=== PATIENT | male | born 1995 | race American Indian/Alaskan Native ===

== ENCOUNTER 2020-10-04 00:32 | Emergency (ER) | payer OTHER ==
[2020-10-04] MEDS ORDERED: ALBUTEROL 2.5 MG/3 ML NEBU IH ONE (02:13)
[2020-10-04] MEDS ORDERED: dexAMETHasone 20 MG/5 ML VIAL IM ONE (02:16)
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
[2020-10-04] MEDS: IPRATROPIUM 0.02% NEBU 2.5 ML IH ONE (02:34)
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
[2020-10-04 02:40] VITALS: BP 126/83
[2020-10-04 03:12] LABS: Basophils # (Auto) 0.1 K/mm3 (0.0-0.1); Eosinophils # (Auto) 0.1 K/mm3 (0.0-0.4); Eosinophils % (Auto) 1.7 % (0.0-4.3); Hematocrit 44.7 % (35.5-45.6); Hemoglobin 15.8 gm/dl (11.8-15.2); Lymphocytes # (Auto) 3.4 K/mm3 (1.2-5.4); Lymphocytes % (Auto) 48.5 % (13.4-35.0); Mean Corpuscular HGB Conc 35 % (32-34); Mean Corpuscular Volume 92 fl (84-94); Monocytes # (Auto) 0.5 K/mm3 (0.0-0.8); Monocytes % (Auto) 6.5 % (0.0-7.3); Platelet Count 132 K/mm3 (140-440); Red Blood Count 4.85 M/mm3 (3.65-5.03); Red Cell Distribution Width 14.7 % (13.2-15.2)
[2020-10-04 03:46] LABS: BUN/Creatinine Ratio 12; Blood Urea Nitrogen 11 mg/dL (9-20); Calcium 9.2 mg/dL (8.4-10.2); Hemolysis Index 17
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
[2020-10-04 04:24] LABS: ABG Base Excess -0.3 mmol/L (-2.0-3.0); ABG HCO3 25.1 mmol/L (20.0-26.0); ABG Methemoglobin 0.6 % (0.0-1.5); ABG Oxygen Saturation 95.2 % (95.0-99.0); ABG PCO2 43.4 mm Hg; ABG PH 7.379 pH Units (7.350-7.450); ABG PO2 70.8 mm Hg (80.0-90.0)
--- NOTE | 2020-10-07 11:45 | Electrocardiograph Report ---
[facility] Test Date: 2020-10-04 Test Time: 02:44:28 Pat Name: MAVIS LEAHY Department: Room: Gender: M Medical Laboratory Scientist: NUHA : 1995 Requested By: SHANNA TOWNSEND Order Number: [id number] Reading MD: Garry Cordoba Measurements Intervals [place] Rate: 79 P: 33 [place]: 134 QRS: 48 QRSD: 100 T: 2 QT: 348 QTc: 399 Interpretive Statements Sinus rhythm ST elev, probable normal early repol pattejavascript:perform('study_confirm');rn No previous ECG available for comparison Electronically Signed On 10-07-2020 11:44:30 EDT by Garry Cordoba
== END 2020-10-04 07:00 ==
LOC: ED 00:32
DX: T59.811A Toxic effect of smoke, accidental (unintentional), initial encounter (principal); R06.02 Shortness of breath; F17.200 Nicotine dependence, unspecified, uncomplicated; Z98.890 Other specified postprocedural states; Z79.899 Other long term (current) drug therapy; Y92.89 Other specified places as the place of occurrence of the external cause
CPT/HCPCS: 36415; 71045; 80048; 82375; 82550; 82553; 82803; 84484; 85025; 93005; 94640; 96372; 99284; J1100; 94644